=== PATIENT | male | born 1950 | race Caucasian/White ===

== ENCOUNTER 2018-03-13 12:33 | Emergency (ER) | payer BC ==
[~2018-03-13] VITALS: Ht 185.4 cm; Wt 113.4 kg
[2018-03-13] MEDS ORDERED: ASPIRIN CHEWABLE 81 MG TABLET. PO ONE (13:30)
--- NOTE | 2018-03-13 13:35 | PHYS DOC ---
Past Medical History Past Medical History: Hypertension Past Surgical History: Colectomy, Tonsillectomy, Other Additional Past Surgical Histo: ostomy reversal, hernia repair x3 Additional Information: 1 ppd Alcohol Use: Occasionally Drug Use: None Adult General Chief Complaint Chief Complaint: LOWER EXTREMITY SWELLING [facility] HPI Patient is a 67-year-old male patient who presents to the emergency department for evaluation. He states that for the past 6+ months, he has had pedal edema in his legs, which has become somewhat tense. He states he takes an over-the- counter "fluid pill". He states he has a primary care doctor affiliated with the system, whom he sees for routine physical exams annually, and has not seen him since the summer. He states that he did have a chest x-ray done during his last physical when he discussed with them about his pedal edema, and they recommended he undergo further testing but the patient never followed up for any further testing. He has not had any recent chest pain. He does report some increasing dyspnea on exertion, however. He states he had some paresthesias in his left arm yesterday but that is not present today. He did not have any weakness or speech difficulty or vision changes or headache. There are no alleviating or exacerbating factors to his symptoms otherwise. Review of Systems Review of Systems Constitutional: Denies fever or chills [] Eyes: Denies change in visual acuity, redness, or eye pain [] HENT: Denies nasal congestion or sore throat [] Respiratory: The patient reports a cough productive of whitish sputum. Denies any pleuritic chest pain. Reports dyspnea on exertion. [] Cardiovascular: No additional information not addressed in HPI [] GI: Denies abdominal pain, nausea, vomiting, bloody stools or diarrhea [] : Denies dysuria or hematuria [] Musculoskeletal: Denies back pain or joint pain [] Integument: Denies rash or skin lesions [] Neurologic: Denies headache, focal weakness or sensory changes [] Endocrine: Denies polyuria or polydipsia [] All other systems were reviewed and found to be within normal limits, except as documented in this note. Current Medications Current Medications Current Medications Medications (Trade) Dose Ordered Sig/Deirdre Start Time Stop Time Status Last Admin Dose Admin Aspirin (Children'S Aspirin) 324 mg 1X ONCE 03/13/18 13:30 03/13/18 13:33 DC 03/13/18 14:10 324 MG Allergies Allergies Allergies Coded Allergies Type Severity Reaction Last Updated Verified No Known Drug Allergies 03/13/18 No Physical Exam Physical Exam PHYSICAL EXAM: CONSTITUTIONAL: Well developed, well nourished HEAD: normocephalic, atraumatic EENT: PERRL, EOMI. Conjunctivae normal color, sclerae non-icteric; moist mucous membranes. NECK: Supple, non-tender; no meningismus. There is no JVD. LUNGS: There are scattered expiratory rhonchi in the lung bases bilaterally. There are no wheezes or rales. The upper lobes are clear to auscultation bilaterally. breathing even and unlabored. Normal air movement. HEART: Regular rate and rhythm, no murmur CHEST: No deformity; non-tender ABDOMEN: The abdomen is soft, and non-tender, no masses or bruits. EXTREM: Normal ROM; no deformity, no calf tenderness. Normal pulses palpable in all extremities. There is bilateral 2-plus tense pitting pedal edema. SKIN: No rash; no diaphoresis NEURO: Alert; normal speech and cognition; CN's grossly intact; strength grossly intact without focal deficit. BACK: No CVA TTP. Current Patient Data Vital Signs Vital Signs Date Time Temp Pulse Resp B/P (MAP) Pulse Ox O2 Delivery O2 Flow Rate FiO2 03/13/18 14:07 78 18 144/88 (106) 98 Room Air 03/13/18 13:19 98.5 98.5 Lab Values Laboratory Tests Test 03/13/18 13:35 White Blood Count 5.1 x10^3/uL (4.0-11.0) Red Blood Count 4.23 x10^6/uL (4.30-5.70) L Hemoglobin 9.3 g/dL (13.0-17.5) L Hematocrit 30.5 % (39.0-53.0) L Mean Corpuscular Volume 72 fL (79-100) L Mean Corpuscular Hemoglobin 22 pg (25-35) L Mean Corpuscular Hemoglobin Concent 31 g/dL (31-37) Red Cell Distribution Width 19.8 % (11.5-14.5) H Platelet Count 275 x10^3/uL (140-400) Neutrophils (%) (Auto) 62 % (31-73) Lymphocytes (%) (Auto) 22 % (24-48) L Monocytes (%) (Auto) 13 % (0-9) H Eosinophils (%) (Auto) 2 % (0-3) Basophils (%) (Auto) 1 % (0-3) Neutrophils # (Auto) 3.2 x10^3uL (1.8-7.7) Lymphocytes # (Auto) 1.1 x10^3/uL (1.0-4.8) Monocytes # (Auto) 0.7 x10^3/uL (0.0-1.1) Eosinophils # (Auto) 0.1 x10^3/uL (0.0-0.7) Basophils # (Auto) 0.1 x10^3/uL (0.0-0.2) Platelet Estimate Adequate (ADEQUATE) Hypochromasia Slight Anisocytosis Slight Microcytosis Slight Sodium Level 142 mmol/L (136-145) Potassium Level 4.5 mmol/L (3.5-5.1) Chloride Level 106 mmol/L (98-107) Carbon Dioxide Level 27 mmol/L (21-32) Anion Gap 9 (6-14) Blood Urea Nitrogen 13 mg/dL (8-26) Creatinine 0.9 mg/dL (0.7-1.3) Estimated GFR (Cockcroft-Gault) 84.4 BUN/Creatinine Ratio 14 (6-20) Glucose Level 107 mg/dL (70-99) H Calcium Level 8.8 mg/dL (8.5-10.1) Magnesium Level 1.9 mg/dL (1.8-2.4) Total Bilirubin 1.0 mg/dL (0.2-1.0) Aspartate Amino Transferase (AST) 12 U/L (15-37) L Alanine Aminotransferase (ALT) 18 U/L (16-63) Alkaline Phosphatase 80 U/L (46-116) Creatine Kinase 158 U/L (39-308) Creatine Kinase MB (Mass) 3.6 ng/mL (0.0-3.6) Creatine Kinase MB Relative Index 2.3 % (0-4) Troponin I Quantitative < 0.017 ng/mL (0.000-0.055) EI-Fhm-W-Type Natriuretic Peptide 42 pg/mL (0-124) Total Protein 6.6 g/dL (6.4-8.2) Albumin 3.3 g/dL (3.4-5.0) L Albumin/Globulin Ratio 1.0 (1.0-1.7) Laboratory Tests 03/13/18 13:35 Laboratory Tests 03/13/18 13:35 EKG EKG [Normal sinus rhythm with a normal rate, normal axis, normal intervals, there are no acute ischemic ST/T changes.] Radiology/Procedures Radiology/Procedures [PROCEDURE: CHEST PA & LATERAL EXAM: Chest, 2 views. HISTORY: Short of breath. Leg swelling. COMPARISON: None. FINDINGS: 2 views of the chest are obtained. There is no infiltrate, pleural effusion or pneumothorax. The heart is normal in size. There is hyperinflation due to respiratory effort or emphysema. IMPRESSION: No acute pulmonary finding.] Course & Med Decision Making Course & Med Decision Making Pertinent Labs and Imaging studies reviewed. (See chart for details) [3:55 PM: The patient's condition remains stable. His condition is chronic, I do suspect that his DVT is likely subacute to chronic as well. He'll be started on an anticoagulant. I stressed importance of close follow-up with his primary care provider at , he is uncertain of the names I am unable to contact them, and I also discussed the importance of follow-up with a vascular surgeon as I suspect the patient might have underlying venous insufficiency. Return precautions were discussed in detail.] I have also discussed the importance of smoking cessation. Dragon Disclaimer Dragon Disclaimer This electronic medical record was generated, in whole or in part, using a voice recognition dictation system. Departure Departure Impression: Primary Impression: Pedal edema Additional Impression: DVT (deep venous thrombosis) Disposition: 01 HOME, SELF-CARE Condition: STABLE Referrals: SETH MCGUIRE MD Patient Instructions: Deep Vein Thrombosis, Edema, Peripheral Edema Scripts Apixaban (ELIQUIS) 5 Mg Tablet 5 MG PO BID, #60 TAB Prov: KINJAL VAZQUEZ MD 03/13/18 Furosemide (FUROSEMIDE) 40 Mg Tablet 1 TAB PO DAILY, #30 TAB 0 Refills Prov: KINJAL VAZQUEZ MD 03/13/18 Problem Qualifiers KINJAL VAZQUEZ MD Mar 13, 2018 13:35
[2018-03-13 13:47] LABS: BASO # 0.1 x10^3/uL (0.0-0.2); BASO % 1 % (0-3); EOS # 0.1 x10^3/uL (0.0-0.7); EOS % 2 % (0-3); HEMATOCRIT 30.5 % (39.0-53.0); HEMOGLOBIN 9.3 g/dL (13.0-17.5); LYMPH # 1.1 x10^3/uL (1.0-4.8); LYMPH % 22 % (24-48); MEAN CORPUSCULAR HEMOGLOBIN 22 pg (25-35); MEAN CORPUSCULAR HGB CONC 31 g/dL (31-37); MEAN CORPUSCULAR VOLUME 72 fL (79-100); MONO # 0.7 x10^3/uL (0.0-1.1); MONO % 13 % (0-9); NEUT # 3.2 x10^3uL (1.8-7.7); NEUT % 62 % (31-73); PLATELET COUNT 275 x10^3/uL (140-400); RED BLOOD COUNT 4.23 x10^6/uL (4.30-5.70); RED CELL DISTRIBUTION WIDTH 19.8 % (11.5-14.5); WHITE BLOOD COUNT 5.1 x10^3/uL (4.0-11.0)
[2018-03-13 13:57] LABS: CALCIUM 8.8 mg/dL (8.5-10.1); CREATININE 0.9 mg/dL (0.7-1.3); GFR 84.4; POTASSIUM 4.5 mmol/L (3.5-5.1)
--- NOTE | 2018-03-13 13:57 | RAD ---
EXAM: Chest, 2 views. HISTORY: Short of breath. Leg swelling. COMPARISON: None. FINDINGS: 2 views of the chest are obtained. There is no infiltrate, pleural effusion or pneumothorax. The heart is normal in size. There is hyperinflation due to respiratory effort or emphysema. IMPRESSION: No acute pulmonary finding. Electronically signed by: Tawana Nowak MD (03/13/2018 1:54 PM) [id number]
[2018-03-13 14:05] LABS: ALBUMIN 3.3 g/dL (3.4-5.0); MAGNESIUM 1.9 mg/dL (1.8-2.4); TOTAL PROTEIN 6.6 g/dL (6.4-8.2)
--- NOTE | 2018-03-13 14:13 | EKG ---
[facility] [address] [place] [address] Test Date: 2018-03-13 Test Time: 14:00:02 Pat Name: KASSANDRA FRANCOIS Department: Room: Gender: M [employer]: : 1950 Requested By: KINJAL VAZQUEZ Order Number: [id number] Reading MD: Cyrus Wilcox Measurements Intervals R[place]on Rate: 80 P: 39 IA: 210 QRS: 34 QRSD: 84 T: 28 QT: 344 QTc: 400 Interpretive Statements SINUS RHYTHM NONSPECIFIC ST-T WAVE CHANGES. Electronically Signed On 03-15-2018 9:06:28 [employer] by Cyrus Wilcox
[2018-03-13 14:36] LABS: ANISOCYTOSIS SLIGHT; HYPOCHROMIA SLIGHT; MICROCYTOSIS SLIGHT; PLT ESTIMATE ADEQUATE (ADEQUATE)
--- NOTE | 2018-03-13 15:40 | RAD ---
Bilateral Lower Extremity Venous Doppler Ultrasound Indication: Bilateral lower extremity edema. Evaluate for deep venous thrombosis. Comparison: None. Procedure: Color Doppler, spectral Doppler, and grayscale images with and without compression are obtained in the area of the common femoral vein, superficial femoral vein - femoral vein junction, main femoral vein (superficial femoral vein) and popliteal vein. Veins of the proximal calf are also imaged. Findings: Nonocclusive deep venous thrombosis can be seen involving the posterior tibial vein of the proximal calf; thrombosis is age indeterminate. Other veins of right lower extremity are without evidence of deep venous vessels. Veins of left lower extremity are without evidence of deep venous thrombosis. Impression: 1. Small nonocclusive deep venous thrombosis involving portions of right posterior tibial vein. 2. Veins of left lower extremity are without evidence of deep venous thrombosis.. Electronically signed by: Pascual Stauffer MD (03/13/2018 3:36 PM) [facility]
[2018-03-13 15:52] VITALS: BP 137/82
[2018-03-13] MEDS ORDERED: APIX5TAB PO (16:02)
[2018-03-13] MEDS ORDERED: FURO40TA4 PO (16:02)
[2018-03-13] MEDS ORDERED: APIXABAN 5 MG TABLET. PO ONE (16:15)
== END 2018-03-13 16:31 | disposition home or self-care (01) ==
LOC: ER 12:33
DX: I82.403 Acute embolism and thrombosis of unspecified deep veins of lower extremity, bilateral (principal); R05 Cough; R06.00 Dyspnea, unspecified; I10 Essential (primary) hypertension; F17.200 Nicotine dependence, unspecified, uncomplicated; Z98.890 Other specified postprocedural states
CPT/HCPCS: 36415; 71046; 80053; 82553; 83735; 83880; 84484; 85025; 93005; 93970; 99284-25